=== PATIENT | female | born 1975 | race Caucasian/White ===

== ENCOUNTER → 2017-09-26 | Outpatient (CLI) | payer BC ==
--- NOTE | 2017-09-26 09:58 | RADIOLOGY REPORT (SQ) ---
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 TECHNIQUE: CT scan of the abdomen and pelvis performed using helical scanning technique with dynamic intravenous contrast injection. No oral contrast. Images reviewed with lung, soft tissue, and bone windows. Reconstructed coronal and sagittal MPR images reviewed. Delayed images for evaluation of the urinary system also acquired. All images stored on PACS. All CT scanners at this facility use dose modulation, iterative reconstruction, and/or weight based d osing when appropriate to reduce radiation dose to as low as reasonably achievable (ALARA). [facility]: Dose Right [facility]: CareDose [facility]: Dose Right [facility]: Teradose 4D [facility]: [place] CONTRAST TYPE AND DOSE: contrast/concentration: Isovue 370.00 mg/ml; Total Contrast Delivered: 61.0 ml; Total Saline Delivered: 65.0 ml RENAL FUNCTION: See separate report of the same date. RADIATION DOSE: CT Rad equipment meets quality standard of care and radiation dose reduction techniq ues were employed. CTDIvol: 4.4 - 5.0 mGy. DLP: 686 mGy-cm.. LIMITATIONS: None. FINDINGS: LOWER CHEST: See separate report of the CT of the chest. LIVER: Normal size. No masses. No dilated ducts. SPLEEN: Normal size. No focal lesions. PANCREAS: No masses. No significant calcifications. No adjacent inflammation or peripancreatic fluid collections. Pancreatic duct not dilated. GALLBLADDER: No identified stones by CT criteria. No inflammatory changes to suggest cholecystitis. ADRENAL GLANDS: No significant masses or asymmetry. RIGHT KIDNEY AND URETER: No solid masses. No significant calcifications. No hydronephrosis or hyd roureter. LEFT KIDNEY AND URETER: No solid masses. No significant calcifications. No hydronephrosis or hydr oureter. AORTA AND VESSELS: No aneurysm. No dissection. Renal arteries, SMA, celiac without stenosis. RETROPERITONEUM: No retroperitoneal adenopathy, hemorrhage or masses. BOWEL AND PERITONEAL CAVITY: No masses or inflammatory changes. No free fluid or peritoneal masses. APPENDIX: Normal. PELVIS: No mass. No free fluid. Normal bladder. ABDOMINAL WALL: No masses. No hernias. BONES: No significant or acute findings. OTHER: No other significant finding. IMPRESSION: No evidence of metastatic disease. TECHNICAL DOCUMENTATION: JOB ID: [id number] Quality ID # [id number]: Final reports with documentation of one or more dose reduction techniques (e.g., Au tomated exposure control, adjustment of the mA and/or kV according to patient size, use of iterative reconstruction technique) 2010 [employer]- All Rights Reserved
--- NOTE | 2017-09-26 11:34 | RADIOLOGY REPORT (SQ) ---
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 TECHNIQUE: CT scan of the chest performed using helical scanning technique with dynamic intravenous contrast injection. Images reviewed with lung, soft tissue and bone windows. Reconstructed coronal and sagittal MPR images reviewed. All images stored on PACS. All CT scanners at this facility use dose modulation, iterative reconstruction, and/or weight based d osing when appropriate to reduce radiation dose to as low as reasonably achievable (ALARA). [facility]: Dose Right [facility]: CareDose [facility]: Dose Right [facility]: Teradose 4D [facility]: Smart [employer] CONTRAST TYPE AND DOSE: See separate report of the same date. RENAL FUNCTION: See separate report of the same date. RADIATION DOSE: . LIMITATIONS: None. FINDINGS: LUNGS AND PLEURA: No opacities, nodules, masses. No pneumothorax. No effusions. HILAR AND MEDIASTINAL STRUCTURES: No identified masses or abnormal nodes. HEART AND VASCULAR STRUCTURES: No aneurysm or dissection. No central pulmonary emboli. No pericardi al effusion. HARDWARE: None in the chest. UPPER ABDOMEN: See separate report of the CT of the abdomen. THYROID AND OTHER SOFT TISSUES: No masses. No adenopathy. BONES: No significant finding. OTHER: No other significant finding. IMPRESSION: No evidence of metastatic disease. TECHNICAL DOCUMENTATION: JOB ID: [id number] Quality ID # [id number]: Final reports with documentation of one or more dose reduction techniques (e.g., Au tomated exposure control, adjustment of the mA and/or kV according to patient size, use of iterative reconstruction technique) 2010 [email or web address]- All Rights Reserved
--- NOTE | 2017-09-26 13:50 | RADIOLOGY REPORT (SQ) ---
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 RADIONUCLIDE AND DOSE: 20.1 millicuries Tc99m HDP. The route of agent administration: Intravenous. ADDITIONAL DRUGS AND DOSES: None. TECHNIQUE: Routine delayed images at 3 hour post radionuclide injection acquired of the bony skeleto n including anterior and posterior whole-body projections and additional focused images as needed. LIMITATIONS: None. FINDINGS: BONES: Very subtle increased uptake seen over the left posterior 5th posterior rib. Expec t higher uptake for metastatic lesion. No corresponding abnormality seen on chest CT of the same ki e. Subtle uptake level of L5-S1 to left of midline, most likely degenerative. KIDNEYS: Symmetric excretion without obstruction. OTHER: No other significant finding. IMPRESSION: Subtle uptake left posterior 5th rib but no definitive metastatic disease. COMMENT: Quality measure 147: Current bone scan is compared with any available plain radiographs, p rior bone scans, and CT/MRI. TECHNICAL DOCUMENTATION: JOB ID: [id number] [employer]- All Rights Reserved
== END ==
LOC: RAD 08:17
PROVIDERS: ATTEND Internal Medicine Hematology & Oncology
DX: C50.411 Malignant neoplasm of upper-outer quadrant of right female breast (principal)
CPT/HCPCS: 78306; 71260; 74177; A9561; Q9969

== ENCOUNTER → 2017-10-02 | Outpatient (CLI) | payer BC ==
--- NOTE | 2017-10-02 16:20 | RADIOLOGY REPORT (SQ) ---
EXAM DESCRIPTION: NM MUGA REST COMPLETED DATE/TIME: 10/02/2017 3:54 pm REASON FOR STUDY: ENCOUNTER FOR FOLLOWUP EXAMINATION AFTER COMPLETED TREATMENT FOR MAL MARYELLEN Z08 ENCN TR FOR FOLLOW-UP EXAM AFTER TRTMT FOR MALIGNANT NEOP COMPARISON: None. RADIONUCLIDE AND DOSE: 26.4 mCi technetium 99 tagged red cells. The route of agent administration: Intravenous TECHNIQUE: Following administration of the radionuclide, gated images of the heart are obtained in t hree projections. Left ventricular functional analysis performed. LIMITATIONS: None. FINDINGS: LEFT VENTRICULAR FUNCTION: EJECTION FRACTION: 79%. END-DIASTOLIC VOLUME: 150 mL. END-SYSTOLIC VOLUME: 27 mL. WALL MOTION: No focal wall motion abnormalities. OTHER: No other significant finding. IMPRESSION: NORMAL CARDIAC MUGA STUDY. NORMAL LEFT VENTRICULAR FUNCTION WITH VALUES ABOVE. TECHNICAL DOCUMENTATION: JOB ID: [id number] [employer]- All Rights Reserved
== END ==
LOC: RAD 13:29
PROVIDERS: ATTEND Internal Medicine
DX: Z08 Encounter for follow-up examination after completed treatment for malignant neoplasm (principal); Z85.3 Personal history of malignant neoplasm of breast; Z13.6 Encounter for screening for cardiovascular disorders
CPT/HCPCS: 78472; A9560; Q9969

== ENCOUNTER 2017-10-18 11:56 | Outpatient (CLI) | payer BC ==
[2017-10-18] MEDS ORDERED: NORMAL SALINE 1000 ML 1,000 ML IV PRN (12:11)
[2017-10-18] MEDS ORDERED: ONDANSETRON HCL/PF 16 MG in NORMAL SALINE 50 ML IV PRN (12:21)
[2017-10-18 12:26] VITALS: BP 102/66
== END 2017-10-18 14:43 | disposition home or self-care (01) ==
LOC: II 11:56 → 5TH 12:00 → II 14:43
PROVIDERS: ATTEND Internal Medicine
PROC: 3E0437Z Introduction of Electrolytic and Water Balance Substance into Central Vein, Percutaneous Approach (ICD-10-PCS; principal; 2017-10-18)
PROC: 3E043GC Introduction of Other Therapeutic Substance into Central Vein, Percutaneous Approach (ICD-10-PCS; 2017-10-18)
DX: E86.0 Dehydration (principal); R11.2 Nausea with vomiting, unspecified; C50.411 Malignant neoplasm of upper-outer quadrant of right female breast
CPT/HCPCS: 96367; 96374; 96360; J2405; 96361; 96365

== ENCOUNTER 2017-11-06 10:38 | Outpatient (CLI) | payer BC ==
[2017-11-06 10:51] VITALS: BP 113/77
[2017-11-06 11:39] LABS: HEMATOCRIT 36.4 % (36.0-47.0); HEMOGLOBIN 12.5 g/dL (12.0-15.5); MEAN CORPUSCULAR HEMOGLOBIN 29.9 pg (27.0-33.4); MEAN CORPUSCULAR HGB CONC 34.2 g/dL (32.0-36.0); MEAN CORPUSCULAR VOLUME 87 fl (80-97); PLATELET COUNT 126 10^3/uL (150-450); RED BLOOD COUNT 4.17 10^6/uL (3.72-5.28); RED CELL DISTRIBUTION WIDTH 13.5 % (11.5-14.0)
[2017-11-06 11:45] LABS: ABSOLUTE LYMPHOCYTES# (MANUAL) 0.5 10^3/uL (0.5-4.7); ABSOLUTE NEUTROPHILS# (MANUAL) 1.5 10^3/uL (1.7-8.2); BAND NEUTROPHILS % (MANUAL) 1 % (3-5); BASOPHILS % (MANUAL) 0 % (0-2); EOSINOPHILS % (MANUAL) 1 % (0-6); LYMPHOCYTES % (MANUAL) 26 % (13-45); MONOCYTES % (MANUAL) 0 % (3-13); SEGMENTED NEUTROPHILS % (MAN) 72 % (42-78); TOTAL CELLS COUNTED 100
[2017-11-06 11:46] LABS: RBC MORPHOLOGY COMMENT NORMO-CYTIC/CHROMIC
[2017-11-06 11:47] LABS: PLATELET COMMENT DECREASED
[2017-11-06 17:25] LABS: PATH REVIEW PATHOLOGIST REVIEWED
[2017-11-08] MEDS ORDERED: ONDANSETRON HCL/PF 16 MG in NORMAL SALINE 50 ML IV PRN (05:00)
[2017-11-08] MEDS ORDERED: NORMAL SALINE 1000 ML 1,000 ML IV PRN (05:00)
== END 2017-11-06 13:02 | disposition home or self-care (01) ==
LOC: II 10:38 → 5TH 10:40 → II 13:02
PROVIDERS: ATTEND Internal Medicine
PROC: 3E0437Z Introduction of Electrolytic and Water Balance Substance into Central Vein, Percutaneous Approach (ICD-10-PCS; principal; 2017-11-06)
PROC: 3E043GC Introduction of Other Therapeutic Substance into Central Vein, Percutaneous Approach (ICD-10-PCS; 2017-11-06)
DX: E86.0 Dehydration (principal); C50.411 Malignant neoplasm of upper-outer quadrant of right female breast; R11.2 Nausea with vomiting, unspecified
CPT/HCPCS: 36415; 85025; 96360; 96361; 96365; 96367; 96374; 96375; J2405

== ENCOUNTER 2017-11-26 08:39 | Outpatient (CLI) | payer BC ==
[~2017-11-26 08:39] MED LIST: NORMAL SALINE 1000 ML 1,000 ML IV PRN; ONDANSETRON HCL INJ/PF 4 MG/2 ML SDV IV PRN
[2017-11-26 09:53] VITALS: BP 99/61
== END 2017-11-26 10:41 | disposition home or self-care (01) ==
LOC: II 08:39 → 5TH 08:47 → II 10:41
PROVIDERS: ATTEND Internal Medicine
PROC: 3E0437Z Introduction of Electrolytic and Water Balance Substance into Central Vein, Percutaneous Approach (ICD-10-PCS; principal; 2017-11-26)
PROC: 3E043GC Introduction of Other Therapeutic Substance into Central Vein, Percutaneous Approach (ICD-10-PCS; 2017-11-26)
DX: E86.0 Dehydration (principal); R11.2 Nausea with vomiting, unspecified
CPT/HCPCS: 96367; 96360; J2405; 96361; 96374

== ENCOUNTER 2017-11-28 08:49 | Outpatient (CLI) | payer BC ==
[2017-11-28 09:13] VITALS: BP 115/52
[2017-11-28 09:18] LABS: ABSOLUTE LYMPHOCYTES (AUTO) 0.5 10^3/uL (0.5-4.7); ABSOLUTE NEUT (AUTO) 0.2 10^3/uL (1.7-8.2); BASOPHILS % (AUTO) 3.1 % (0-2); EOSINOPHILS % (AUTO) 0.5 % (0-6); HEMATOCRIT 30.5 % (36.0-47.0); HEMOGLOBIN 10.7 g/dL (12.0-15.5); LYMPHOCYTES % (AUTO) 65.5 % (13-45); MEAN CORPUSCULAR HEMOGLOBIN 30.8 pg (27.0-33.4); MEAN CORPUSCULAR HGB CONC 35.2 g/dL (32.0-36.0); MEAN CORPUSCULAR VOLUME 87 fl (80-97); MONOCYTES % (AUTO) 2.3 % (3-13); PLATELET COUNT 160 10^3/uL (150-450); RED BLOOD COUNT 3.49 10^6/uL (3.72-5.28); RED CELL DISTRIBUTION WIDTH 15.6 % (11.5-14.0); SEGMENTED NEUTROPHILS % (AUTO) 28.6 % (42-78); TOTAL CELLS COUNTED % (AUTO) 100 %
[2017-11-28 09:24] LABS: WHITE BLOOD COUNT 0.8 10^3/uL (4.0-10.5)
[2017-11-28 09:56] LABS: ANISOCYTOSIS SLIGHT; OVALOCYTES 1+; PLATELET COMMENT ADEQUATE; POIKILOCYTOSIS 1+
== END 2017-11-28 12:15 | disposition home or self-care (01) ==
LOC: II 08:49 → 5TH 08:51 → II 12:15
PROVIDERS: ATTEND Internal Medicine
PROC: 3E0437Z Introduction of Electrolytic and Water Balance Substance into Central Vein, Percutaneous Approach (ICD-10-PCS; principal; 2017-11-28)
PROC: 3E043GC Introduction of Other Therapeutic Substance into Central Vein, Percutaneous Approach (ICD-10-PCS; 2017-11-28)
DX: E86.0 Dehydration (principal); R11.2 Nausea with vomiting, unspecified
CPT/HCPCS: 36415; 85025; 96374; 96375; 96360; J2405; 96361

== ENCOUNTER 2017-12-29 21:09 | Inpatient (IN) | payer BC ==
[2017-12-29 22:49] LABS: HEMATOCRIT 20.8 % (36.0-47.0); MEAN CORPUSCULAR HEMOGLOBIN 32.8 pg (27.0-33.4); MEAN CORPUSCULAR HGB CONC 35.3 g/dL (32.0-36.0); MEAN CORPUSCULAR VOLUME 93 fl (80-97); PLATELET COUNT 115 10^3/uL (150-450); RED BLOOD COUNT 2.24 10^6/uL (3.72-5.28); RED CELL DISTRIBUTION WIDTH 19.3 % (11.5-14.0)
[2017-12-29 22:55] LABS: HEMOGLOBIN 7.4 g/dL (12.0-15.5); WHITE BLOOD COUNT 0.6 10^3/uL (4.0-10.5)
[2017-12-29 23:02] LABS: ANION GAP 11 (5-19); BLOOD UREA NITROGEN 14 mg/dL (7-20); CALCIUM 9.4 mg/dL (8.4-10.2); CARBON DIOXIDE 26 mmol/L (22-30); CHLORIDE 98 mmol/L (98-107); GLUCOSE 121 mg/dL (75-110); POTASSIUM 3.7 mmol/L (3.6-5.0); SODIUM 135.4 mmol/L (137-145)
--- NOTE | 2017-12-29 23:11 | RADIOLOGY REPORT (SQ) ---
EXAM DESCRIPTION: CHEST SINGLE VIEW COMPLETED DATE/TIME: 12/29/2017 10:24 pm REASON FOR STUDY: fever COMPARISON: None. EXAM PARAMETERS: NUMBER OF VIEWS: One view. TECHNIQUE: Single frontal radiographic view of the chest acquired. RADIATION DOSE: NA LIMITATIONS: None. FINDINGS: LUNGS AND PLEURA: No consolidation, masses or pneumothorax. No pleural effusion. MEDIASTINUM AND HILAR STRUCTURES: No masses. Contour normal. HEART AND VASCULAR STRUCTURES: Heart normal in size. Normal vasculature. BONES: No acute findings. HARDWARE: Left-sided vascular port. OTHER: No other significant finding. IMPRESSION: No consolidation or pleural effusion. TECHNICAL DOCUMENTATION: JOB ID: [id number] [place]-72 2010 [email or web address]- All Rights Reserved Reading location - IP/workstation name: [email or web address]
[2017-12-29] MEDS ORDERED: VANCOMYCIN HCL INJ 1000 MG VIAL IV ONE (23:15)
[2017-12-29] MEDS ORDERED: CEFEPIME 2 GM/D5W RTU 2 GM/50 ML RTUPB IV ONE (23:15)
[2017-12-29] MEDS ORDERED: NORMAL SALINE 1000 ML 1,000 ML IV ONE (23:16)
--- NOTE | 2017-12-29 23:18 | ER Document Report ---
ED General - General Chief Complaint: Fever Stated Complaint: FEVER Time Seen by Provider: 12/29/17 21:53 Notes: Patient is a 42 year old female with a past medical history of stage II breast cancer actively on chemotherapy, last dose of chemotherapy 9 days ago who presents with fever at home up to 102F. Patient has had some sore throat, nasal congestion and nonproductive cough for the past 2 days and for spiked a fever today. She contacted her oncologist who instructed her to come to the emergency department. She denies any associated vomiting, diarrhea or difficulty tolerating oral intake. No headache or neck pain. No dysuria. No focal weakness or numbness. Denies a prior history of neutropenic fever in the past. Nothing improves or worsens her symptoms. TRAVEL OUTSIDE OF THE [place] IN LAST 30 DAYS: No - Related Data Allergies/Adverse Reactions: acetaminophen [From Percocet] Allergy (Verified 12/29/17 21:32) oxycodone [From Percocet] Allergy (Verified 12/29/17 21:32) Past Medical History - General Information source: Patient, Relative - Social History Smoking Status: Never Smoker Chew tobacco use (# tins/day): No Frequency of alcohol use: None Drug Abuse: None Lives with: Spouse/Significant other Family History: Reviewed & Not Pertinent Patient has suicidal ideation: No Patient has homicidal ideation: No Renal/ Medical History: Denies: Hx Peritoneal Dialysis Review of Systems - Review of Systems Notes: Constitutional: Positive for fever. HENT: Positive for sore throat. Eyes: Negative for visual changes. Cardiovascular: Negative for chest pain. Respiratory: Negative for shortness of breath. Gastrointestinal: Negative for abdominal pain, vomiting or diarrhea. Genitourinary: Negative for dysuria. Musculoskeletal: Negative for back pain. Skin: Negative for rash. Neurological: Negative for headaches, weakness or numbness. 10 point ROS negative except as marked above and in HPI. Physical Exam - Vital signs Vitals: Temp Pulse Resp BP Pulse Ox 99.7 F 116 H 16 111/55 L 100 12/29/17 21:09 12/29/17 21:09 12/29/17 21:09 12/29/17 21:09 12/29/17 21:09 Interpretation: Tachycardic Notes: PHYSICAL EXAMINATION: GENERAL: Frail, cachectic HEAD: Atraumatic, normocephalic. EYES: Pupils equal round and reactive to light, extraocular movements intact, sclera anicteric, conjunctiva are normal. ENT: nares patent, oropharynx clear without exudates. Moderately dry mucous membranes. NECK: Normal range of motion, supple without lymphadenopathy LUNGS: Breath sounds clear to auscultation bilaterally and equal. No wheezes rales or rhonchi. HEART: Regular tachycardia without murmurs ABDOMEN: Soft, nontender, normoactive bowel sounds. No guarding, no rebound. No masses appreciated. EXTREMITIES: Normal range of motion, no pitting or edema. No cyanosis. NEUROLOGICAL: No focal neurological deficits. Moves all extremities spontaneously and on command. PSYCH: Normal mood, normal affect. SKIN: Warm, Dry, normal turgor, no rashes or lesions noted. Course - Re-evaluation Re-evalutation: 12/29/17 23:16 Patient presents with fever in the setting of neutropenia, only complaints are of a sore throat and nasal congestion suggesting possible viral etiology although given her neutropenic fever she will require broad-spectrum antibiotics and hospitalization. Cultures have been obtained. I have discussed this plan with the oncologist security installation technician Dr. Walker who is agreeable to admission with broad-spectrum antibiotics and observation for culture data. Patient is otherwise nontoxic in appearance. - Vital Signs Vital signs: Temp Pulse Resp BP Pulse Ox 99.7 F 116 H 16 111/55 L 100 12/29/17 21:09 12/29/17 21:09 12/29/17 21:09 12/29/17 21:09 12/29/17 21:09 - Laboratory Result Diagrams: 12/29/17 22:30 12/29/17 22:30 Laboratory results interpreted by me: 12/29/17 12/29/17 22:30 22:30 WBC 0.6 L* RBC 2.24 L Hgb 7.4 L Hct 20.8 L RDW 19.3 H Plt Count 115 L Seg Neuts % (Manual) 11 L Lymphocytes % (Manual) 74 H Metamyelocytes % 3 H Myelocytes % 3 H Abs Neuts (Manual) 0.1 L Abs Lymphs (Manual) 0.4 L Abs Monocytes (Manual) 0.0 L Sodium 135.4 L Glucose 121 H - Diagnostic Test Radiology reviewed: Image reviewed, Reports reviewed Radiology results interpreted by me: 12/29/17 23:58 Chest x-ray: No acute infiltrate or pneumothorax Discharge - Discharge Clinical Impression: Neutropenic fever, Sore throat Condition: Fair Disposition: ADMITTED INPATIENT Admitting Provider: Hospitalist Unit Admitted: Medical Floor
[2017-12-29 23:27] LABS: ABSOLUTE LYMPHOCYTES# (MANUAL) 0.4 10^3/uL (0.5-4.7); ABSOLUTE NEUTROPHILS# (MANUAL) 0.1 10^3/uL (1.7-8.2); BAND NEUTROPHILS % (MANUAL) 4 % (3-5); BASOPHILS % (MANUAL) 0 % (0-2); EOSINOPHILS % (MANUAL) 0 % (0-6); MONOCYTES % (MANUAL) 5 % (3-13); NUCLEATED RED BLOOD CELLS 1 /100 WBC (0); SEGMENTED NEUTROPHILS % (MAN) 11 % (42-78); TOTAL CELLS COUNTED 100
[2017-12-29 23:30] LABS: ANISOCYTOSIS 2+; HYPOCHROMASIA SLIGHT; PLATELET COMMENT ADEQUATE; POLYCHROMASIA SLIGHT
[2017-12-29 23:31] LABS: OVALOCYTES SLIGHT; POIKILOCYTOSIS SLIGHT
[2017-12-29 23:32] LABS: METAMYELOCYTES % (MANUAL) 3 % (0); MYELOCYTES % (MANUAL) 3 % (0)
[2017-12-29 23:36] LABS: LYMPHOCYTES % (MANUAL) 74 % (13-45)
[2017-12-30] MEDS ORDERED: VANCOMYCIN HCL 0 MG in DEXTROSE 5%-WATER 250 ML IV NR (00:30)
[2017-12-30] MEDS ORDERED: CHLORHEXIDINE GLUCONATE 0.12% ORAL RINSE 15 ML UDC MM ONE (00:30)
--- NOTE | 2017-12-30 00:38 | PDOC H&P ---
History of Present Illness Admission Date/PCP: 12/30/17 00:04 History of Present Illness: KENYA CHAWLA is a 42 year old very pleasant but unfortunate female patient with stage II breast cancer presented with chief complaint of fever. Patient has been on chemotherapy for her breast CA. She presented with 1 day history of fever and sore throat. Her blood work shows pancytopenia with WBC of 0.6. The case discussed with Dr. Walker who agreed to admit the patient and started on broad-spectrum antibiotics. Sore throat and blood culture results are pending. Patient denies chest pain, cough, nausea, vomiting , diarrhea, abdominal pain, dysuria urgency or frequency. No headache, dizziness, blurry vision or any seizure activity. No dyspnea, orthopnea or PND. Past Surgical History Past Surgical History: Reports: None Social History Smoking Status: Never Smoker - Advance Directive Resuscitation Status: Full Code Family History Family History: None Parental Family History Reviewed: Yes Children Family History Reviewed: Yes Sibling(s) Family History Reviewed.: Yes Medication/Allergy Home Medications: No Home Medications 11/06/17 Allergies/Adverse Reactions: acetaminophen [From Percocet] Allergy (Verified 12/29/17 21:32) oxycodone [From Percocet] Allergy (Verified 12/29/17 21:32) Review of Systems Constitutional: PRESENT: as per HPI Eyes: PRESENT: as per HPI Cardiovascular: PRESENT: as per HPI Respiratory: PRESENT: as per HPI Gastrointestinal: PRESENT: as per HPI Neurological: PRESENT: as per HPI Psychiatric: PRESENT: as per HPI Physical Exam Vital Signs: Temp Pulse Resp BP Pulse Ox 99.7 F 116 H 16 111/55 L 100 12/29/17 21:09 12/29/17 21:09 12/29/17 21:09 12/29/17 21:09 12/29/17 21:09 General appearance: PRESENT: no acute distress Head exam: PRESENT: atraumatic, other - Alopecia Mouth exam: PRESENT: dry mucosa Respiratory exam: PRESENT: clear to auscultation [place]. ABSENT: rales, rhonchi, wheezes Cardiovascular exam: PRESENT: RRR. ABSENT: diastolic murmur, rubs, systolic murmur GI/Abdominal exam: PRESENT: normal bowel sounds, soft. ABSENT: distended, guarding, mass, organolmegaly, rebound, tenderness Neurological exam: PRESENT: alert, oriented to time, oriented to situation Psychiatric exam: PRESENT: normal mood Results Impressions: Chest X-Ray 12/29/17 21:54 IMPRESSION: No consolidation or pleural effusion. Assessment & Plan - Diagnosis (1) Neutropenic fever Is this a current diagnosis for this admission?: Yes Plan: Patient is empirically covered with cefepime and vancomycin. For her sore throat I started her on Cepacol and chlorhexidine (2) Breast CA Is this a current diagnosis for this admission?: Yes Plan: Management per her primary oncologist - Time Time Spent: 30 to 50 Minutes - Inpatient Certification Medical Necessity: Need Close Monitoring Due to Risk of Patient Decompensation, Need for IV Antibiotics
[2017-12-30] MEDS ORDERED: ACETAMINOPHEN 325 MG TABLET PO ONE (01:29)
[2017-12-30] MEDS: BENZOCAINE/MENTHOL SORE THROAT LOZENGE BUCCAL PRN ×2 (01:49→06:20)
[2017-12-30 02:36] LABS: APPEARANCE,URINE CLEAR; BILIRUBIN,URINE NEGATIVE (NEGATIVE); COLOR,URINE YELLOW; GLUCOSE, URINE NEGATIVE (NEGATIVE); KETONES,URINE NEGATIVE (NEGATIVE); LEUKOCYTE ESTERASE,URINE NEGATIVE (NEGATIVE); NITRITE,URINE NEGATIVE (NEGATIVE); PROTEIN,URINE NEGATIVE (NEGATIVE); UROBILINOGEN,URINE NEGATIVE mg/dL (<2.0)
[2017-12-30] MEDS ORDERED: NORMAL SALINE 1000 ML 1,000 ML IV ONE (03:45)
[2017-12-30] MEDS ORDERED: ALPRAZOLAM 0.5 MG TABLET PO PRN ×2 (05:53→11:15)
[2017-12-30] MEDS ORDERED: PROMETHAZINE HCL 25 MG TABLET PO PRN (05:54)
[2017-12-30] MEDS: NORMAL SALINE 1000 ML 1,000 ML IV PRN (06:18)
[2017-12-30 08:37] LABS: ABSOLUTE LYMPHOCYTES (AUTO) 0.4 10^3/uL (0.5-4.7); ABSOLUTE MONOCYTES (AUTO) 0.2 10^3/uL (0.1-1.4); ABSOLUTE NEUT (AUTO) 0.2 10^3/uL (1.7-8.2); BASOPHILS % (AUTO) 0.4 % (0-2); HEMATOCRIT 18.7 % (36.0-47.0); LYMPHOCYTES % (AUTO) 47.5 % (13-45); MEAN CORPUSCULAR HGB CONC 35.2 g/dL (32.0-36.0); MEAN CORPUSCULAR VOLUME 94 fl (80-97); MONOCYTES % (AUTO) 29.7 % (3-13); RED BLOOD COUNT 1.99 10^6/uL (3.72-5.28); RED CELL DISTRIBUTION WIDTH 19.6 % (11.5-14.0); SEGMENTED NEUTROPHILS % (AUTO) 22.4 % (42-78); TOTAL CELLS COUNTED % (AUTO) 100 %
[2017-12-30 08:49] LABS: ANION GAP 9 (5-19); BLOOD UREA NITROGEN 10 mg/dL (7-20); CALCIUM 8.5 mg/dL (8.4-10.2); CARBON DIOXIDE 26 mmol/L (22-30); CHLORIDE 107 mmol/L (98-107); GLUCOSE 110 mg/dL (75-110); PHOSPHORUS 3.7 mg/dL (2.5-4.5); POTASSIUM 3.7 mmol/L (3.6-5.0); SODIUM 141.5 mmol/L (137-145)
--- NOTE | 2017-12-30 08:50 | PDOC CONSULTATION ---
Consultation Consult Date: 12/30/17 Attending physician:: LULY ROGER Consult reason:: Neutropenic fever, stage II breast ca receiving neoadjuvant chemo History of Present Illness Admission Date/PCP: 12/30/17 00:04 Patient complains of: Breast ca, fever History of Present Illness: KENYA CHAWLA is a 42 year old female w. breast ca, her-2+, getting neoadjuvant chemo ,received cycle #4 of perjeta/herceptin/carboplatin/docetaxel , had cbc on saturday w/ wt ct 0.6, neutropenic, got call saturday on her w/ fever 102, instructed pt to come to ED, here wt ct 0.6 ANC <500, hb 7 range, pt w/ hypotension, given IVF bolus, started on cefepime and vanc and cultures pending. Past Medical History Malignancy Medical History: Reports: Breast Cancer Past Surgical History Past Surgical History: Reports: None Social History Information Source: Patient Lives with: Spouse/Significant other Smoking Status: Never Smoker - Advance Directive Resuscitation Status: Full Code Family History Family History: Reviewed & Not Pertinent Parental Family History Reviewed: Yes Children Family History Reviewed: Yes Sibling(s) Family History Reviewed.: Yes Medication/Allergy Home Medications: Alprazolam [Alprazolam] 1 tab PO BID PRN 12/30/17 Diphenoxylate HCl/Atropine [Diphenoxylate-Atrop 2.5-0.025] 1 - 2 tab PO ASDIR PRN 12/30/17 Hydroxyzine HCl [Hydroxyzine HCl] 1 tab PO Q8HP PRN 12/30/17 Promethazine HCl [Promethazine HCl] 1 tab PO Q6HP PRN 12/30/17 Allergies/Adverse Reactions: acetaminophen [From Percocet] Allergy (Verified 12/29/17 21:32) oxycodone [From Percocet] Allergy (Verified 12/29/17 21:32) Review of Systems Constitutional: PRESENT: anorexia, chills, fatigue, fever(s), weakness Cardiovascular: PRESENT: dyspnea on exertion, palpitations Gastrointestinal: ABSENT: abdominal pain, constipation, diarrhea, hematemesis, hematochezia, nausea, vomiting Neurological: ABSENT: abnormal gait, abnormal speech, confusion, dizziness, focal weakness, syncope Endocrine: PRESENT: cold intolerance Physical Exam Vital Signs: Temp Pulse Resp BP Pulse Ox 98.1 F 94 12 91/50 L 100 12/30/17 07:10 12/30/17 07:10 12/30/17 07:10 12/30/17 07:10 12/30/17 07:10 Intake & Output 12/29/17 12/30/17 12/31/17 06:59 06:59 06:59 Intake Total 1125 Balance 1125 Weight 58.8 kg General appearance: PRESENT: no acute distress, well-developed, well-nourished Head exam: PRESENT: atraumatic, normocephalic Eye exam: PRESENT: conjunctiva pink, EOMI, PERRLA. ABSENT: scleral icterus Ear exam: PRESENT: normal external ear exam Mouth exam: PRESENT: moist, tongue midline Neck exam: ABSENT: carotid bruit, JVD, lymphadenopathy, thyromegaly Respiratory exam: PRESENT: clear to auscultation franklyn. ABSENT: rales, rhonchi, wheezes Cardiovascular exam: PRESENT: RRR. ABSENT: diastolic murmur, rubs, systolic murmur Pulses: PRESENT: normal dorsalis pedis pul Vascular exam: PRESENT: normal capillary refill GI/Abdominal exam: PRESENT: normal bowel sounds, soft. ABSENT: distended, guarding, mass, organolmegaly, rebound, tenderness Rectal exam: PRESENT: deferred Extremities exam: PRESENT: full ROM. ABSENT: calf tenderness, clubbing, pedal edema Neurological exam: PRESENT: alert, awake, oriented to person, oriented to place , oriented to time, oriented to situation, CN II-XII grossly intact. ABSENT: motor sensory deficit Psychiatric exam: PRESENT: appropriate affect, normal mood. ABSENT: homicidal ideation, suicidal ideation Skin exam: PRESENT: dry, intact, warm. ABSENT: cyanosis, rash Results Laboratory Results: 12/30/17 12/30/17 01:55 02:20 Urine Color YELLOW Urine Appearance CLEAR Urine pH 5.0 Ur Specific [place] 1.010 Urine Protein NEGATIVE Urine Glucose (UA) NEGATIVE Urine Ketones NEGATIVE Urine Blood NEGATIVE Urine Nitrite NEGATIVE Ur Leukocyte Esterase NEGATIVE Urine WBC (Auto) 5 Urine RBC (Auto) 1 Blood Type A POSITIVE Antibody Screen NEGATIVE Impressions: Chest X-Ray 12/29/17 21:54 IMPRESSION: No consolidation or pleural effusion. Assessment & Plan - Diagnosis (1) Neutropenic fever Is this a current diagnosis for this admission?: Yes Plan: 2nd to chemo rx, cefepime changed to q 8, cont vanc until cultures neg, cont cefepime until ANC >1000, started pt on neupogen (2) Anemia associated with chemotherapy Is this a current diagnosis for this admission?: Yes Plan: 2nd chemo, will need 2 units PRBC, gave zackary/tyl for prophy, no lasix 2nd to hypotension (3) Breast CA Qualifiers: Estrogen receptor status: negative Laterality: unspecified laterality Is this a current diagnosis for this admission?: Yes Plan: 2nd to HER-2+ breast ca s/p chemo, will need further dose red as ouptt - Time Time Spent: Greater than 70 Minutes - Inpatient Certification Based on my medical assessment, after consideration of the patient's comorbidities, presenting symptoms, or acuity I expect that the services needed warrant INPATIENT care.: Yes I certify that my determination is in accordance with my understanding of Medicare's requirements for reasonable and necessary INPATIENT services [42 CFR 412.3e].: Yes Medical Necessity: Need for IV Antibiotics
[2017-12-30 08:55] LABS: PLATELET COUNT 99 10^3/uL (150-450)
[2017-12-30 09:05] LABS: WHITE BLOOD COUNT 0.7 10^3/uL (4.0-10.5)
[2017-12-30 09:12] LABS: ANISOCYTOSIS 2+; OVALOCYTES 2+; PLATELET COMMENT DECREASED; POIKILOCYTOSIS 2+
[2017-12-30] MEDS: DIPHENHYDRAMINE HCL 25 MG CAPSULE PO PRN ×2 (09:23→15:59)
[2017-12-30] MEDS: ACETAMINOPHEN 325 MG TABLET PO SCH ×2 (09:23→15:59)
[2017-12-30] MEDS ORDERED: CEFEPIME 2 GM/D5W RTU 2 GM/50 ML RTUPB IV SCH (10:00)
[2017-12-30] MEDS ORDERED: MAGNESIUM SULFATE 4 GM/100 ML RTUPB IV ONE (10:39)
[2017-12-30] MEDS ORDERED: ACETAMINOPHEN 325 MG TABLET PO PRN (10:39)
[2017-12-30] MEDS: VANCOMYCIN HCL 1,250 MG in DEXTROSE 5%-WATER 250 ML IV SCH ×2 (11:52→21:10)
[2017-12-30] MEDS: LACTOBACILLUS ACIDOPHILUS 250 MG TAB PO SCH ×2 (11:53→18:38)
[2017-12-30 13:23] LABS: PATH REVIEW PATHOLOGIST REVIEWED
[2017-12-30] MEDS: CHLORHEXIDINE GLUCONATE 0.12% ORAL RINSE 15 ML UDC MM SCH ×2 (13:34→18:38)
[2017-12-30] MEDS: CEFEPIME 2 GM/D5W RTU 2 GM/50 ML RTUPB IV SCH ×2 (13:37→21:07)
[2017-12-30] MEDS: FILGRASTIM INJ 300 MCG/1 ML VIAL SUBCUT SCH (14:00)
--- NOTE | 2017-12-30 14:32 | PDOC PROGRESS REPORT ---
Subjective Progress Note for:: 12/30/17 Subjective:: 42 yr old female with breast cancer received cycle #4 on 12/27/17 presented to the ER on 12/29/17 with fever and neutropenia and was started on IV antibiotics. She was seen by her Oncologist Dr. Walker who ordered Neupogen and 2 units of PRBC. She is complaining of a sore throat. Grp A strep arpid antigen was negative. Chest Xray normal. Reason For Visit: NEUTROPENIC FEVER Physical Exam Vital Signs: Temp Pulse Resp BP Pulse Ox 97.9 F 92 16 98/53 L 100 12/30/17 12:59 12/30/17 12:59 12/30/17 11:16 12/30/17 12:59 12/30/17 12:59 Intake & Output 12/29/17 12/30/17 12/31/17 06:59 06:59 06:59 Intake Total 1125 590 Balance 1125 590 Weight 58.8 kg General appearance: PRESENT: no acute distress, thin Head exam: PRESENT: normocephalic Eye exam: PRESENT: PERRLA Mouth exam: PRESENT: moist Throat exam: ABSENT: tonsillar exudate Neck exam: ABSENT: tracheal deviation Respiratory exam: PRESENT: clear to auscultation franklyn, symmetrical, unlabored. ABSENT: crackles Cardiovascular exam: PRESENT: RRR GI/Abdominal exam: PRESENT: normal bowel sounds, soft. ABSENT: tenderness Rectal exam: PRESENT: deferred Extremities exam: ABSENT: calf tenderness, pedal edema Neurological exam: PRESENT: alert, awake, oriented to person, oriented to place , oriented to time, oriented to situation Psychiatric exam: PRESENT: appropriate affect Skin exam: ABSENT: rash Results Laboratory Results: 12/30/17 08:20 12/30/17 08:20 12/30/17 12/30/17 12/30/17 01:55 02:20 08:20 WBC 0.7 L* RBC 1.99 L Hgb 6.6 L Hct 18.7 L MCV 94 MCH 33.0 MCHC 35.2 RDW 19.6 H Plt Count 99 L Seg Neutrophils % 22.4 L Lymphocytes % 47.5 H Monocytes % 29.7 H Eosinophils % 0.0 Basophils % 0.4 Absolute Neutrophils 0.2 L Absolute Lymphocytes 0.4 L Absolute Monocytes 0.2 Absolute Eosinophils 0.0 Absolute Basophils 0.0 Sodium Potassium Chloride Carbon Dioxide Anion Gap BUN Creatinine Est GFR ( Amer) Est GFR (Non-Af Amer) Glucose Calcium Phosphorus Magnesium Urine Color YELLOW Urine Appearance CLEAR Urine pH 5.0 Ur Specific [place] 1.010 Urine Protein NEGATIVE Urine Glucose (UA) NEGATIVE Urine Ketones NEGATIVE Urine Blood NEGATIVE Urine Nitrite NEGATIVE Ur Leukocyte Esterase NEGATIVE Urine WBC (Auto) 5 Urine RBC (Auto) 1 Blood Type A POSITIVE Antibody Screen NEGATIVE 12/30/17 08:20 WBC RBC Hgb Hct MCV MCH MCHC RDW Plt Count Seg Neutrophils % Lymphocytes % Monocytes % Eosinophils % Basophils % Absolute Neutrophils Absolute Lymphocytes Absolute Monocytes Absolute Eosinophils Absolute Basophils Sodium 141.5 Potassium 3.7 Chloride 107 Carbon Dioxide 26 Anion Gap 9 BUN 10 Creatinine 0.60 Est GFR ( Amer) > 60 Est GFR (Non-Af Amer) > 60 Glucose 110 Calcium 8.5 Phosphorus 3.7 Magnesium 1.3 L Urine Color Urine Appearance Urine pH Ur Specific [place] Urine Protein Urine Glucose (UA) Urine Ketones Urine Blood Urine Nitrite Ur Leukocyte Esterase Urine WBC (Auto) Urine RBC (Auto) Blood Type Antibody Screen Impressions: Chest X-Ray 12/29/17 21:54 IMPRESSION: No consolidation or pleural effusion. Assessment & Plan - Diagnosis (1) Neutropenic fever Is this a current diagnosis for this admission?: Yes Plan: Vanc and Cefepime. Follow up on cultures. Monitor counts. Neutropenic precautions (2) Sore throat Is this a current diagnosis for this admission?: Yes Plan: Symptomatic management (3) Anemia associated with chemotherapy Is this a current diagnosis for this admission?: Yes Plan: 2 units PRBC ordered (4) Breast CA Qualifiers: Estrogen receptor status: negative Laterality: unspecified laterality Is this a current diagnosis for this admission?: Yes Plan: management per Oncology (5) Hypomagnesemia Is this a current diagnosis for this admission?: Yes Plan: Replete - Time Time Spent with patient: 25-34 minutes
[2017-12-30 22:27] LABS: HEMATOCRIT 21.9 % (36.0-47.0); MEAN CORPUSCULAR HEMOGLOBIN 32.7 pg (27.0-33.4); MEAN CORPUSCULAR VOLUME 93 fl (80-97); RED BLOOD COUNT 2.34 10^6/uL (3.72-5.28); RED CELL DISTRIBUTION WIDTH 18.3 % (11.5-14.0)
[2017-12-30 22:41] LABS: HEMOGLOBIN 7.7 g/dL (12.0-15.5); PLATELET COUNT 98 10^3/uL (150-450)
[2017-12-30 22:53] LABS: WHITE BLOOD COUNT 1.5 10^3/uL (4.0-10.5)
[2017-12-31] MEDS: CEFEPIME 2 GM/D5W RTU 2 GM/50 ML RTUPB IV SCH ×2 (06:43→13:23)
[2017-12-31 07:30] LABS: HEMATOCRIT 22.3 % (36.0-47.0); MEAN CORPUSCULAR HEMOGLOBIN 32.6 pg (27.0-33.4); MEAN CORPUSCULAR HGB CONC 35.1 g/dL (32.0-36.0); MEAN CORPUSCULAR VOLUME 93 fl (80-97); RED CELL DISTRIBUTION WIDTH 18.7 % (11.5-14.0)
[2017-12-31 08:06] LABS: HEMOGLOBIN 7.8 g/dL (12.0-15.5); PLATELET COUNT 94 10^3/uL (150-450)
[2017-12-31 08:07] LABS: WHITE BLOOD COUNT 2.8 10^3/uL (4.0-10.5)
[2017-12-31 08:12] LABS: ANION GAP 9 (5-19); BLOOD UREA NITROGEN 9 mg/dL (7-20); CALCIUM 8.7 mg/dL (8.4-10.2); CARBON DIOXIDE 25 mmol/L (22-30); CHLORIDE 105 mmol/L (98-107); GLUCOSE 92 mg/dL (75-110); POTASSIUM 3.2 mmol/L (3.6-5.0); SODIUM 139.2 mmol/L (137-145)
[2017-12-31 08:18] LABS: HEMOGLOBIN 6.6 g/dL (12.0-15.5)
[2017-12-31 08:32] LABS: ABSOLUTE LYMPHOCYTES# (MANUAL) 0.7 10^3/uL (0.5-4.7); ABSOLUTE MONOCYTES # (MANUAL) 0.4 10^3/uL (0.1-1.4); ABSOLUTE NEUTROPHILS# (MANUAL) 1.7 10^3/uL (1.7-8.2); BASOPHILS % (MANUAL) 0 % (0-2); EOSINOPHILS % (MANUAL) 0 % (0-6); LYMPHOCYTES % (MANUAL) 24 % (13-45); MONOCYTES % (MANUAL) 16 % (3-13); MYELOCYTES % (MANUAL) 1 % (0); SEGMENTED NEUTROPHILS % (MAN) 47 % (42-78); TOTAL CELLS COUNTED 100
[2017-12-31 08:34] LABS: TOXIC GRANULATION 1+
[2017-12-31 08:35] LABS: ANISOCYTOSIS 2+; OVALOCYTES 2+; PLATELET COMMENT DECREASED; POIKILOCYTOSIS 2+
[2017-12-31] MEDS: VANCOMYCIN HCL 1,250 MG in DEXTROSE 5%-WATER 250 ML IV SCH (09:01)
--- NOTE | 2017-12-31 09:10 | PDOC PROGRESS REPORT ---
Subjective Progress Note for:: 12/31/17 Subjective:: Yesterday with blood patient did have severe nausea and vomiting and was febrile so only 25% of transfusion was given with the second unit. She is having a lot of diarrhea today, but otherwise she is feeling a little bit better. Reviewed labs, ANC is just above 1000 now, I will give 1 more dose of Neupogen today. I will discontinue the vancomycin as the cultures are negative thus far. I will do a C. difficile for her diarrhea and if that is negative will start her on Imodium as is probably related to GI side effects from the antibiotic. Reason For Visit: NEUTROPENIC FEVER Physical Exam Vital Signs: Temp Pulse Resp BP Pulse Ox 98.7 F 93 16 109/62 100 12/31/17 07:22 12/31/17 07:22 12/31/17 07:22 12/31/17 07:22 12/31/17 07:22 Intake & Output 12/30/17 12/31/17 01/01/18 06:59 06:59 06:59 Intake Total 1125 4210 Balance 1125 4210 Weight 58.8 kg 61.6 kg General appearance: PRESENT: no acute distress, well-developed, well-nourished Head exam: PRESENT: atraumatic, normocephalic Eye exam: PRESENT: conjunctiva pink, EOMI, PERRLA. ABSENT: scleral icterus Ear exam: PRESENT: normal external ear exam Mouth exam: PRESENT: moist, tongue midline Neck exam: ABSENT: carotid bruit, JVD, lymphadenopathy, thyromegaly Respiratory exam: PRESENT: clear to auscultation franklyn. ABSENT: rales, rhonchi, wheezes Cardiovascular exam: PRESENT: RRR. ABSENT: diastolic murmur, rubs, systolic murmur Pulses: PRESENT: normal dorsalis pedis pul Vascular exam: PRESENT: normal capillary refill GI/Abdominal exam: PRESENT: normal bowel sounds, soft. ABSENT: distended, guarding, mass, organolmegaly, rebound, tenderness Rectal exam: PRESENT: deferred Extremities exam: PRESENT: full ROM. ABSENT: calf tenderness, clubbing, pedal edema Neurological exam: PRESENT: alert, awake, oriented to person, oriented to place , oriented to time, oriented to situation, CN II-XII grossly intact. ABSENT: motor sensory deficit Psychiatric exam: PRESENT: appropriate affect, normal mood. ABSENT: homicidal ideation, suicidal ideation Skin exam: PRESENT: dry, intact, warm. ABSENT: cyanosis, rash Results Laboratory Results: 12/31/17 06:45 12/31/17 06:45 12/30/17 12/30/17 12/30/17 01:55 08:20 22:00 WBC 0.7 L* 1.5 L* RBC 1.99 L 2.34 L Hgb 6.6 L 7.7 L Hct 18.7 L 21.9 L MCV 94 93 MCH 33.0 32.7 MCHC 35.2 35.0 RDW 19.6 H 18.3 H Plt Count 99 L 98 L Seg Neutrophils % 22.4 L Lymphocytes % 47.5 H Monocytes % 29.7 H Eosinophils % 0.0 Basophils % 0.4 Absolute Neutrophils 0.2 L Absolute Lymphocytes 0.4 L Absolute Monocytes 0.2 Absolute Eosinophils 0.0 Absolute Basophils 0.0 Sodium Potassium Chloride Carbon Dioxide Anion Gap BUN Creatinine Est GFR ( Amer) Est GFR (Non-Af Amer) Glucose Calcium Blood Type A POSITIVE Antibody Screen NEGATIVE 12/31/17 12/31/17 06:45 06:45 WBC 2.8 L D RBC 2.40 L Hgb 7.8 L Hct 22.3 L MCV 93 MCH 32.6 MCHC 35.1 RDW 18.7 H Plt Count 94 L Seg Neutrophils % Not Reportable Lymphocytes % Not Reportable Monocytes % Not Reportable Eosinophils % Not Reportable Basophils % Not Reportable Absolute Neutrophils Not Reportable Absolute Lymphocytes Not Reportable Absolute Monocytes Not Reportable Absolute Eosinophils Not Reportable Absolute Basophils Not Reportable Sodium 139.2 Potassium 3.2 L Chloride 105 Carbon Dioxide 25 Anion Gap 9 BUN 9 Creatinine 0.63 Est GFR ( Amer) > 60 Est GFR (Non-Af Amer) > 60 Glucose 92 Calcium 8.7 Blood Type Antibody Screen Impressions: Chest X-Ray 12/29/17 21:54 IMPRESSION: No consolidation or pleural effusion. Assessment & Plan - Diagnosis (1) Neutropenic fever Is this a current diagnosis for this admission?: Yes Plan: Improved, secondary to chemotherapy, plan for 1 more dose of Neupogen, DC vancomycin, continue cefepime for 24 more hours, if white count continues to rise, and patient remains afebrile for 24 hours then she should DC home thereafter On oral antibiotics. (2) Anemia associated with chemotherapy Is this a current diagnosis for this admission?: Yes Plan: Hemoglobin slightly improved, no further blood for now given the transfusion reaction. (3) Breast CA Qualifiers: Estrogen receptor status: negative Laterality: unspecified laterality Is this a current diagnosis for this admission?: Yes Plan: She will require 2 more cycles of chemotherapy but will require significant dose reductions most likely. - Time Time Spent with patient: 35 or more minutes - Inpatient Certification Based on my medical assessment, after consideration of the patient's comorbidities, presenting symptoms, or acuity I expect that the services needed warrant INPATIENT care.: Yes I certify that my determination is in accordance with my understanding of Medicare's requirements for reasonable and necessary INPATIENT services [42 CFR 412.3e].: Yes Medical Necessity: Need For IV Fluids, Need for IV Antibiotics
[2017-12-31] MEDS: LACTOBACILLUS ACIDOPHILUS 250 MG TAB PO SCH ×2 (09:13→18:04)
[2017-12-31] MEDS: CHLORHEXIDINE GLUCONATE 0.12% ORAL RINSE 15 ML UDC MM SCH ×2 (09:13→18:04)
[2017-12-31] MEDS ORDERED: MAGNESIUM OXIDE 400 MG TABLET PO SCH (10:00)
--- NOTE | 2017-12-31 11:55 | PDOC PROGRESS REPORT ---
Subjective Progress Note for:: 12/31/17 Subjective:: 42 yr old female with breast cancer received cycle #4 on 12/27/17 presented to the ER on 12/29/17 with fever and neutropenia and was started on IV antibiotics. Grp A strep throat culture is positive Chest Xray normal. Feels better today and is hoping to go home tomorrow for her birthday. Received 1 unit of PRBC on 12/31. Was unable to tolerate the 2nd unit due to fever, nausea and vomiting. Plan for 2nd dose of Neupogen today. Reason For Visit: NEUTROPENIC FEVER Physical Exam Vital Signs: Temp Pulse Resp BP Pulse Ox 98.7 F 93 16 109/62 100 12/31/17 07:22 12/31/17 07:22 12/31/17 07:22 12/31/17 07:22 12/31/17 07:22 Intake & Output 12/30/17 12/31/17 01/01/18 06:59 06:59 06:59 Intake Total 1125 4210 Balance 1125 4210 Weight 58.8 kg 61.6 kg General appearance: PRESENT: thin Head exam: PRESENT: normocephalic Eye exam: ABSENT: scleral icterus Ear exam: PRESENT: normal external ear exam Mouth exam: PRESENT: moist Respiratory exam: PRESENT: symmetrical, unlabored. ABSENT: crackles Cardiovascular exam: PRESENT: RRR GI/Abdominal exam: PRESENT: normal bowel sounds, soft Rectal exam: PRESENT: deferred Neurological exam: PRESENT: alert, awake, oriented to person, oriented to place , oriented to time, oriented to situation Psychiatric exam: PRESENT: appropriate affect Results Laboratory Results: 12/31/17 06:45 12/31/17 06:45 12/30/17 12/30/17 12/30/17 01:55 08:20 22:00 WBC 1.5 L* RBC 2.34 L Hgb 6.6 L 7.7 L Hct 21.9 L MCV 93 MCH 32.7 MCHC 35.0 RDW 18.3 H Plt Count 98 L Seg Neutrophils % Lymphocytes % Monocytes % Eosinophils % Basophils % Absolute Neutrophils Absolute Lymphocytes Absolute Monocytes Absolute Eosinophils Absolute Basophils Sodium Potassium Chloride Carbon Dioxide Anion Gap BUN Creatinine Est GFR ( Amer) Est GFR (Non-Af Amer) Glucose Calcium Blood Type A POSITIVE Antibody Screen NEGATIVE 05/22/18 05/22/18 06:45 06:45 WBC 2.8 L D RBC 2.40 L Hgb 7.8 L Hct 22.3 L MCV 93 MCH 32.6 MCHC 35.1 RDW 18.7 H Plt Count 94 L Seg Neutrophils % Not Reportable Lymphocytes % Not Reportable Monocytes % Not Reportable Eosinophils % Not Reportable Basophils % Not Reportable Absolute Neutrophils Not Reportable Absolute Lymphocytes Not Reportable Absolute Monocytes Not Reportable Absolute Eosinophils Not Reportable Absolute Basophils Not Reportable Sodium 139.2 Potassium 3.2 L Chloride 105 Carbon Dioxide 25 Anion Gap 9 BUN 9 Creatinine 0.63 Est GFR ( Amer) > 60 Est GFR (Non-Af Amer) > 60 Glucose 92 Calcium 8.7 Blood Type Antibody Screen Impressions: Chest X-Ray 12/29/17 21:54 IMPRESSION: No consolidation or pleural effusion. Assessment & Plan - Diagnosis (1) Neutropenic fever Is this a current diagnosis for this admission?: Yes Plan: Day 2 of Cefepime. Blood cultures negative to date. (2) Sore throat Is this a current diagnosis for this admission?: Yes Plan: Continue antibiotic and symptomatic management (3) Anemia associated with chemotherapy Is this a current diagnosis for this admission?: Yes Plan: Transfused 1 unit PRBC (4) Breast CA Qualifiers: Estrogen receptor status: negative Laterality: unspecified laterality Is this a current diagnosis for this admission?: Yes Plan: Management per Oncology (5) Hypomagnesemia Is this a current diagnosis for this admission?: Yes Plan: Repleted - Time Time Spent with patient: 25-34 minutes
[2017-12-31] MEDS ORDERED: LOPERAMIDE HCL 2 MG CAPSULE PO PRN (11:58)
[2017-12-31] MEDS: FILGRASTIM INJ 300 MCG/1 ML VIAL SUBCUT SCH (13:22)
[2017-12-31 14:42] LABS: BAND NEUTROPHILS % (MANUAL) 12 % (3-5)
[2017-12-31] MEDS: NORMAL SALINE 1000 ML 1,000 ML IV PRN (16:41)
[2017-12-31] MEDS ORDERED: AMOXICILLIN TR/POT CLAVULANATE 500-125 MG TAB PO ONE (19:30)
[2018-01-01] MEDS: BENZOCAINE/MENTHOL SORE THROAT LOZENGE BUCCAL PRN (00:52)
[2018-01-01] MEDS: CEFEPIME 2 GM/D5W RTU 2 GM/50 ML RTUPB IV SCH ×2 (00:53→05:33)
[2018-01-01] MEDS ORDERED: AMOXICILLIN TR/POT CLAVULANATE 500-125 MG TAB PO ONE (01:00)
[2018-01-01] MEDS ORDERED: AMOXICILLIN TR/POT CLAVULANATE 500-125 MG TAB PO SCH (06:00)
[2018-01-01 06:22] LABS: ANION GAP 7 (5-19); BLOOD UREA NITROGEN 4 mg/dL (7-20); CALCIUM 8.4 mg/dL (8.4-10.2); CARBON DIOXIDE 25 mmol/L (22-30); CHLORIDE 112 mmol/L (98-107); GLUCOSE 83 mg/dL (75-110); SODIUM 143.8 mmol/L (137-145)
[2018-01-01 06:26] LABS: POTASSIUM 2.9 mmol/L (3.6-5.0)
[2018-01-01 06:42] LABS: HEMATOCRIT 20.6 % (36.0-47.0); MEAN CORPUSCULAR HEMOGLOBIN 32.8 pg (27.0-33.4); MEAN CORPUSCULAR HGB CONC 34.9 g/dL (32.0-36.0); MEAN CORPUSCULAR VOLUME 94 fl (80-97); RED BLOOD COUNT 2.19 10^6/uL (3.72-5.28); RED CELL DISTRIBUTION WIDTH 18.8 % (11.5-14.0)
[2018-01-01] MEDS ORDERED: MAGNESIUM SULFATE/D5W 1 GM/100 ML RTUPB IV ONE ×2 (06:45→06:56)
[2018-01-01] MEDS ORDERED: POTASSIUM CHLORIDE 20 MEQ/15 ML UDCUP ONE (06:46)
[2018-01-01] MEDS ORDERED: POTASSIUM CHLORIDE 10 MEQ TABLET.SA PO ONE (07:00)
[2018-01-01 07:04] LABS: ABSOLUTE LYMPHOCYTES# (MANUAL) 0.9 10^3/uL (0.5-4.7); ABSOLUTE MONOCYTES # (MANUAL) 0.9 10^3/uL (0.1-1.4); BAND NEUTROPHILS % (MANUAL) 3 % (3-5); BASOPHILS % (MANUAL) 0 % (0-2); EOSINOPHILS % (MANUAL) 0 % (0-6); LYMPHOCYTES % (MANUAL) 15 % (13-45); MONOCYTES % (MANUAL) 16 % (3-13); SEGMENTED NEUTROPHILS % (MAN) 66 % (42-78); TOTAL CELLS COUNTED 100
[2018-01-01 07:09] LABS: TOXIC GRANULATION SLIGHT
[2018-01-01 07:10] LABS: ANISOCYTOSIS 2+; OVALOCYTES SLIGHT; PLATELET COMMENT DECREASED; POIKILOCYTOSIS SLIGHT; POLYCHROMASIA SLIGHT; WHITE BLOOD COUNT 5.8 10^3/uL (4.0-10.5)
[2018-01-01 07:11] LABS: PLATELET COUNT 81 10^3/uL (150-450)
[2018-01-01 07:12] LABS: HEMOGLOBIN 7.2 g/dL (12.0-15.5)
--- NOTE | 2018-01-01 08:49 | PDOC PROGRESS REPORT ---
Subjective Progress Note for:: 01/01/18 Subjective:: Pt doing well this am, k was low at 2.9, given IV K and oral K and Mg. wt ct up to 5.8 Reason For Visit: NEUTROPENIC FEVER Physical Exam Vital Signs: Temp Pulse Resp BP Pulse Ox 98.8 F 89 17 106/65 99 01/01/18 07:19 01/01/18 07:19 01/01/18 07:19 01/01/18 07:19 01/01/18 07:19 Intake & Output 12/31/17 01/01/18 01/02/18 06:59 06:59 06:59 Intake Total 4210 3551 Balance 4210 3551 Weight 61.6 kg 63.4 kg Results Laboratory Results: 01/01/18 05:25 01/01/18 05:25 01/01/18 01/01/18 01/01/18 05:25 05:25 05:25 WBC 5.8 D RBC 2.19 L Hgb 7.2 L Hct 20.6 L MCV 94 MCH 32.8 MCHC 34.9 RDW 18.8 H Plt Count 81 L Seg Neutrophils % Not Reportable Lymphocytes % Not Reportable Monocytes % Not Reportable Eosinophils % Not Reportable Basophils % Not Reportable Absolute Neutrophils Not Reportable Absolute Lymphocytes Not Reportable Absolute Monocytes Not Reportable Absolute Eosinophils Not Reportable Absolute Basophils Not Reportable Sodium 143.8 Potassium 2.9 L* Chloride 112 H Carbon Dioxide 25 Anion Gap 7 BUN 4 L Creatinine 0.56 Est GFR ( Amer) > 60 Est GFR (Non-Af Amer) > 60 Glucose 83 Calcium 8.4 Magnesium 1.4 L Impressions: Chest X-Ray 12/29/17 21:54 IMPRESSION: No consolidation or pleural effusion. Assessment & Plan - Diagnosis (1) Neutropenic fever Is this a current diagnosis for this admission?: Yes Plan: resolved, d/c home today w/ oral atbx levaquin 500 x 5 more days. Hb low but we will monitor as oupt given blood reaction (2) Anemia associated with chemotherapy Is this a current diagnosis for this admission?: Yes Plan: hold on transfusion, we will monitor and manage as outpt (3) Breast CA Qualifiers: Estrogen receptor status: negative Laterality: unspecified laterality Is this a current diagnosis for this admission?: Yes Plan: further rx at ouptt - Time Anticipated discharge: Home Within: within 24 hours Disposition: d/c home today
[2018-01-01 09:32] VITALS: BP 115/69
[2018-01-01 11:28] LABS: PATH REVIEW PATHOLOGIST REVIEWED
--- NOTE | 2018-01-01 18:33 | PDOC DISCHARGE SUMMARY ---
General - Admit/Disc Date/PCP Admission Date/Primary Care Provider: 12/30/17 00:04 Discharge Date: 01/01/18 - Discharge Diagnosis (1) Neutropenic fever Is this a current diagnosis for this admission?: Yes Summary: Treated empirically with cefepime. Seen in consultation by oncology who cleared her for discharge with 5 more days of Levaquin. (2) Pancytopenia due to antineoplastic chemotherapy Is this a current diagnosis for this admission?: Yes Summary: Her white count has improved following a dose of Neupogen. Anemia and thrombocytopenia have remained stable. (3) Breast CA Is this a current diagnosis for this admission?: Yes Summary: Ongoing outpatient chemotherapy. Follow-up with oncology as planned. - Additional Information Resuscitation Status: Full Code Discharge Diet: Regular Discharge Activity: Activity As Tolerated Prescriptions: Chlorhexidine Gluconate [Periogard 0.12% Oral Rinse 15 ml] 15 ml MM BID PRN # 300 ml PRN Reason: Levofloxacin [Levaquin 500 mg Tablet] 500 mg PO DAILY #7 tablet Magnesium Oxide [Mag-Ox 400 mg Tablet] 400 mg PO DAILY #60 tablet Promethazine HCl [Phenergan 25 mg Tablet] 25 mg PO Q6HP PRN #30 tablet PRN Reason: Home Medications: Alprazolam 1 tab PO BID PRN 12/30/17 Acetaminophen [Tylenol 325 mg Tablet] 650 mg PO Q4HP PRN tablet 01/01/18 Benzocaine/Menthol [Chloraseptic Sore Throat Lozenge] 1 each BUCCAL Q2HP PRN lozenge 01/01/18 Chlorhexidine Gluconate [Periogard 0.12% Oral Rinse 15 ml] 15 ml MM BID PRN # 300 ml 01/01/18 Levofloxacin [Levaquin 500 mg Tablet] 500 mg PO DAILY #7 tablet 01/01/18 Loperamide HCl [Imodium 2 mg Capsule] 4 mg PO Q6HP PRN capsule 01/01/18 Magnesium Oxide [Mag-Ox 400 mg Tablet] 400 mg PO DAILY #60 tablet 01/01/18 Promethazine HCl [Phenergan 25 mg Tablet] 25 mg PO Q6HP PRN #30 tablet 01/01/18 History of Present Illness Patient complains of: Fever History of Present Illness: KENYA CHAWLA is a 42 year old very pleasant but unfortunate female patient with stage II breast cancer presented with chief complaint of fever. Patient has been on chemotherapy for her breast CA. She presented with 1 day history of fever and sore throat. Her blood work shows pancytopenia with WBC of 0.6. The case discussed with Dr. Walker who agreed to admit the patient and started on broad-spectrum antibiotics. Sore throat and blood culture results are pending. Patient denies chest pain, cough, nausea, vomiting , diarrhea, abdominal pain, dysuria urgency or frequency. No headache, dizziness, blurry vision or any seizure activity. No dyspnea, orthopnea or PND. Hospital Course Hospital Course: She was empirically started on cefepime and Vancomycin. Seen in consultation by oncology who gave her a dose of Neupogen with improvement in her white count. Her throat swab grew out beta strep, and oncology recommended she be changed over to Levaquin and they will follow her closely as an outpatient. Physical Exam Vital Signs: Temp Pulse Resp BP Pulse Ox 98.8 F 89 17 115/69 99 01/01/18 09:30 01/01/18 09:30 01/01/18 09:30 01/01/18 09:30 01/01/18 09:30 Intake & Output 12/31/17 01/01/18 01/02/18 05:59 05:59 05:59 Intake Total 5235 3651 Balance 5235 3651 Weight 129 lb 10.109 oz 139 lb 12.369 oz General appearance: PRESENT: no acute distress, thin Respiratory exam: PRESENT: clear to auscultation franklyn Cardiovascular exam: PRESENT: RRR GI/Abdominal exam: PRESENT: soft Musculoskeletal exam: PRESENT: normal inspection Neurological exam: PRESENT: alert Psychiatric exam: PRESENT: appropriate affect Skin exam: PRESENT: warm Results Laboratory Results: 01/01/18 05:25 01/01/18 05:25 01/01/18 01/01/18 01/01/18 05:25 05:25 05:25 WBC 5.8 D RBC 2.19 L Hgb 7.2 L Hct 20.6 L MCV 94 MCH 32.8 MCHC 34.9 RDW 18.8 H Plt Count 81 L Seg Neutrophils % Not Reportable Lymphocytes % Not Reportable Monocytes % Not Reportable Eosinophils % Not Reportable Basophils % Not Reportable Absolute Neutrophils Not Reportable Absolute Lymphocytes Not Reportable Absolute Monocytes Not Reportable Absolute Eosinophils Not Reportable Absolute Basophils Not Reportable Sodium 143.8 Potassium 2.9 L* Chloride 112 H Carbon Dioxide 25 Anion Gap 7 BUN 4 L Creatinine 0.56 Est GFR ( Amer) > 60 Est GFR (Non-Af Amer) > 60 Glucose 83 Calcium 8.4 Magnesium 1.4 L 12/30/17 02:20 Clean Catch Midstream Urine Culture - Final NO GROWTH 2 DAYS Impressions: Chest X-Ray 12/29/17 21:54 IMPRESSION: No consolidation or pleural effusion. Qualifiers - * PATIENT BEING DISCHARGED WITH ANY OF THE FOLLOWING DIAGNOSIS: No
== END 2018-01-01 10:17 | disposition home or self-care (01) | DRG 810 ==
LOC: ER 21:09 → EH 12-30 00:04 → 3S 12-30 04:20
PROVIDERS: ADMIT Internal Medicine; ATTEND Internal Medicine
PROC: 30233N1 Transfusion of Nonautologous Red Blood Cells into Peripheral Vein, Percutaneous Approach (ICD-10-PCS; principal; 2017-12-30)
DX: D70.1 Agranulocytosis secondary to cancer chemotherapy (principal); T45.1X5A Adverse effect of antineoplastic and immunosuppressive drugs, initial encounter; C50.919 Malignant neoplasm of unspecified site of unspecified female breast; R50.81 Fever presenting with conditions classified elsewhere; D64.81 Anemia due to antineoplastic chemotherapy; J02.9 Acute pharyngitis, unspecified; R11.2 Nausea with vomiting, unspecified; E83.42 Hypomagnesemia; R19.7 Diarrhea, unspecified; Z17.1 Estrogen receptor negative status [ER-]; Z79.899 Other long term (current) drug therapy
CPT/HCPCS: 36415; 36430; 71045; 80048; 81001; 81025; 83605; 83735; 84100; 85025; 85027; 86850; 86900; 86901; 86920; 87040; 87070; 87077; 87086; 87493; 87880; 96365; 96368; 99284; J0692; J1442; J3370; J3475; J7030; J7060; P9016

== ENCOUNTER → 2018-03-03 | Outpatient (CLI) | payer BC ==
--- NOTE | 2018-03-03 15:23 | RADIOLOGY REPORT (SQ) ---
EXAM DESCRIPTION: NM WHOLE BODY BONE SCAN COMPLETED DATE/TIME: 03/03/2018 2:23 pm REASON FOR STUDY: BREAST CA (C50.411) C50.411 MALIG NEOPLM OF UPPER-OUTER QUADRANT OF RIGHT FEMALE COMPARISON: CT studies from September. RADIONUCLIDE AND DOSE: 20.6 millicuries Tc99m MDP. The route of agent administration: Intravenous. ADDITIONAL DRUGS AND DOSES: None. TECHNIQUE: Routine delayed images at 3 hour post radionuclide injection acquired of the bony skeleto n including anterior and posterior whole-body projections and additional focused images as needed. LIMITATIONS: None. FINDINGS: BONES: Normal visualization without areas of photopenia or increased bony uptake of radiop harmaceutical. KIDNEYS: Symmetric excretion without obstruction. OTHER: No other significant finding. IMPRESSION: NORMAL BONE SCAN. COMMENT: Quality measure 147: Current bone scan is compared with any available plain radiographs, p rior bone scans, and CT/MRI. TECHNICAL DOCUMENTATION: JOB ID: [id number] [employer]- All Rights Reserved Reading location - IP/workstation name: [email or web address]
== END ==
LOC: RAD 10:37
PROVIDERS: ATTEND Internal Medicine
DX: C50.411 Malignant neoplasm of upper-outer quadrant of right female breast (principal)
CPT/HCPCS: 78306; A9561

== ENCOUNTER → 2018-05-26 | Outpatient (CLI) | payer BC ==
--- NOTE | 2018-05-26 13:49 | RADIOLOGY REPORT (SQ) ---
EXAM DESCRIPTION: NM MUGA REST COMPLETED DATE/TIME: 05/26/2018 1:27 pm REASON FOR STUDY: BREAST CA C50.411 MALIG NEOPLM OF UPPER-OUTER QUADRANT OF RIGHT FEMALE COMPARISON: None. RADIONUCLIDE AND DOSE: 25 mCi technetium 99m labeled red blood cells The route of agent administration: Intravenous TECHNIQUE: Following administration of the radionuclide, gated images of the heart are obtained in t hree projections. Left ventricular functional analysis performed. LIMITATIONS: None. FINDINGS: LEFT VENTRICULAR FUNCTION: EJECTION FRACTION: 67%. END-DIASTOLIC VOLUME: 146 mL. END-SYSTOLIC VOLUME: 41 mL. WALL MOTION: No focal wall motion abnormalities. OTHER: No other significant finding. IMPRESSION: NORMAL CARDIAC MUGA STUDY. NORMAL LEFT VENTRICULAR FUNCTION WITH VALUES ABOVE. TECHNICAL DOCUMENTATION: JOB ID: [id number] [employer]- All Rights Reserved Reading location - IP/workstation name: [email or web address]
== END ==
LOC: RAD 10:38
PROVIDERS: ATTEND Internal Medicine
DX: C50.411 Malignant neoplasm of upper-outer quadrant of right female breast (principal)
CPT/HCPCS: 78472; A9560; Q9969

== ENCOUNTER → 2018-08-08 | Outpatient (CLI) | payer BC ==
--- NOTE | 2018-08-08 16:03 | RADIOLOGY REPORT (SQ) ---
EXAM DESCRIPTION: SHOULDER BILAT 2 OR MORE VIEWS COMPLETED DATE/TIME: 08/08/2018 3:47 pm REASON FOR STUDY: M25.519 PAIN IN UNSPECIFIED SHOULDER COMPARISON: None. NUMBER OF VIEWS: Three views. TECHNIQUE: Internal rotation, external rotation, and Y view images acquired of the right and left sh oulder. LIMITATIONS: None. FINDINGS: MINERALIZATION: Normal. BONES: No acute fracture or dislocation. No worrisome bone lesions. JOINTS: No dislocation. VISUALIZED LUNGS AND RIBS: No pneumothorax. No rib fracture. SOFT TISSUES: No radiopaque foreign body. OTHER: No other significant finding. IMPRESSION: NEGATIVE STUDY OF THE RIGHT AND LEFT SHOULDERS. NO RADIOGRAPHIC EVIDENCE OF ACUTE INJURY . TECHNICAL DOCUMENTATION: JOB ID: [id number] [email or web address]- All Rights Reserved Reading location - IP/workstation name: [email or web address]
--- NOTE | 2018-08-08 16:04 | RADIOLOGY REPORT (SQ) ---
EXAM DESCRIPTION: HUMERUS BILAT 2 OR MORE VIEWS COMPLETED DATE/TIME: 08/08/2018 3:46 pm REASON FOR STUDY: M25.519 PAIN IN UNSPECIFIED SHOULDER COMPARISON: None. NUMBER OF VIEWS: Two views. TECHNIQUE: Two radiographic images were acquired of the right humerus to include elbow and shoulder in at least one projection. LIMITATIONS: None. FINDINGS: MINERALIZATION: Normal. BONES: No acute fracture or dislocation. No worrisome bone lesions. SOFT TISSUES: No obvious swelling or foreign body. OTHER: No other significant finding. IMPRESSION: NEGATIVE STUDY OF THE RIGHT HUMERUS. NO RADIOGRAPHIC EVIDENCE OF ACUTE INJURY. TECHNICAL DOCUMENTATION: JOB ID: [id number] [employer]- All Rights Reserved Reading location - IP/workstation name: [email or web address]
== END ==
LOC: RAD 15:29
PROVIDERS: ATTEND Internal Medicine
DX: M25.512 Pain in left shoulder (principal); M25.511 Pain in right shoulder

== ENCOUNTER → 2018-08-18 | Outpatient (CLI) | payer BC ==
--- NOTE | 2018-08-18 13:10 | RADIOLOGY REPORT (SQ) ---
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 Left ventricular functional analysis performed. LIMITATIONS: None. FINDINGS: LEFT VENTRICULAR FUNCTION: EJECTION FRACTION: 71%. END-DIASTOLIC VOLUME: 145 mL. END-SYSTOLIC VOLUME: 48 mL. WALL MOTION: No focal wall motion abnormalities. OTHER: No other significant finding. IMPRESSION: NORMAL CARDIAC MUGA STUDY. NORMAL LEFT VENTRICULAR ejection fraction of 71% TECHNICAL DOCUMENTATION: JOB ID: [id number] [employer]- All Rights Reserved Reading location - IP/workstation name: [email or web address]
== END ==
LOC: RAD 10:42
PROVIDERS: ATTEND Internal Medicine
DX: Z08 Encounter for follow-up examination after completed treatment for malignant neoplasm (principal); C50.411 Malignant neoplasm of upper-outer quadrant of right female breast
CPT/HCPCS: 78472; A9560; Q9969